=== PATIENT | male | born 1980 | race African-American/Black ===

== ENCOUNTER 2018-03-07 12:00 | Inpatient (IN) | payer OTHER ==
[2018-03-07 12:22] VITALS: BMI 23.7
--- NOTE | 2018-03-07 13:54 | HP ---
CIWA Score - CIWA Score Nausea/Vomitin-Mild Nausea/No Vomiting Muscle Tremors: 4-Moderate,w/Arms Extend Anxiety: 4-Mod. Anxious/Guarded Agitation: 4-Moderately Restless Paroxysmal Sweats: 1-Minimal Palms Moist Orientation: 0-Oriented Tacttile Disturbances: 1-Very Mild Itch/Numbness Auditory Disturbances: 0-None Visual Disturbances: 0-None Headache: 0-None Present CIWA-Ar Total Score: 15 Admission ROS BHS - HPI Chief Complaint: alcohol withdrawal sx Allergies/Adverse Reactions: Allergies Allergy/AdvReac Type Severity Reaction Status Date / Time No Known Allergies Allergy Verified 03/07/18 13:38 History of Present Illness: 38 years old male with long history of alcohol dependence denies physical issue and has depression is admitted to detox Exam Limitations: No Limitations - Ebola screening Have you traveled outside of the country in the last 21 days: No Have you had contact with anyone from an Ebola affected area: No Have you been sick,other than usual withdrawal symptoms: No Do you have a fever: No - Review of Systems Constitutional: Loss of Appetite, Changes in sleep, Unintentional Wgt. Loss, Unexplained wgt Loss EENT: reports: No Symptoms Reported Respiratory: reports: No Symptoms reported Cardiac: reports: No Symptoms Reported GI: reports: Nausea, Poor Appetite, Poor Fluid Intake, Abdominal cramping Musculoskeletal: reports: No Symptoms Reported Integumentary: reports: No Symptoms Reported Neuro: reports: Tremors Endocrine: reports: No Symptoms Reported Hematology: reports: No Symptoms Reported Psychiatric: reports: No Sypmtoms Reported, Judgement Intact, Orientated x3, Anxious, Depressed Other Systems: Reviewed and Negative Patient History - Patient Medical History Hx Anemia: Yes (history never on med) Hx Asthma: No Hx Chronic Obstructive Pulmonary Disease (COPD): No Hx Cancer: No Hx Cardiac Disorders: No Hx Congestive Heart Failure: No Hx Hypertension: No Hx Hypercholesterolemia: No Hx Pacemaker: No HX Cerebrovascular Accident: No Hx Seizures: No Hx Dementia: No Hx Diabetes: No Hx Gastrointestinal Disorders: No Hx Liver Disease: No Hx Genitourinary Disorders: No Hx Sexually Transmitted Disorders: No Hx Renal Disease (ESRD): No Hx Thyroid Disease: No Hx Human Immunodeficiency Virus (HIV): No Hx Hepatitis C: No Hx Depression: Yes Hx Suicide Attempt: No Hx Bipolar Disorder: No Hx Schizophrenia: No - Patient Surgical History Past Surgical History: Yes Hx Orthopedic Surgery: Yes (right arm 2010 right jaw 2012) Anesthesia Reaction: No - PPD History Previous Implant?: Yes Documented Results: Negative w/o proof Implanted On Prior R Admission?: No PPD to be Administered?: Yes - Smoking Cessation Smoking history: Never smoked Have you smoked in the past 12 months: No Hx Chewing Tobacco Use: No Initiated information on smoking cessation: No - Substance & Tx. History Hx Alcohol Use: Yes Hx Substance Use: No Substance Use Type: Alcohol Hx Substance Use Treatment: No (1st) - Substances Abused Alcohol-cognac/beer Route: Oral Frequency: Daily Amount used: 1 pt./1-6 pk. Age of first use: 16 Date of Last Use: 03/07/18 Family Disease History - Family Disease History Family Disease History: Other: Father (no contact) Other Family History: only child Admission Physical Exam [facility] - Vital Signs Vital Signs: Vital Signs - 24 hr 03/07/18 12:13 Temperature 97.1 F L Pulse Rate 77 Respiratory 18 Rate Blood Pressure 131/72 - Physical General Appearance: Yes: Appropriately Dressed, Mild Distress, Alcohol on Breath , Thin, Tremorous, Irritable, Sweating HEENTM: Yes: Hearing grossly Normal, Normocephalic, Normal Voice Respiratory: Yes: Chest Non-Tender, Lungs Clear, Normal Breath Sounds, No Respiratory Distress, No Accessory Muscle Use Neck: Yes: Supple, Trachea in good position Breast: Yes: Breasts Symetrical, No Discharge Cardiology: Yes: Regular Rhythm, Regular Rate, S1, S2 Abdominal: Yes: Normal Bowel Sounds, Non Tender, Flat Genitourinary: Yes: Within Normal Limits Back: Yes: Normal Inspection Musculoskeletal: Yes: full range of Motion, Gait Steady Extremities: Yes: Normal Inspection (old healed scars on right arm), Normal Range of Motion, Non-Tender, Tremors Neurological: Yes: Fully Oriented, Alert, Motor Strength 5/5, Normal Response, Depressed Affect Integumentary: Yes: Warm Lymphatic: Yes: Within Normal Limits - Diagnostic (1) Alcohol dependence with uncomplicated withdrawal Current Visit: Yes Status: Acute (2) Anxious depression Current Visit: Yes Status: Suspected Cleared for Admission [facility] - Detox or Rehab [facility] Level of Care: Medically Managed Detox Regimen/Protocol: Librium [facility] Breath Alcohol Content Breath Alcohol Content: 0.008 Urine Drug Screen - Results Drug Screen Negative: Yes
[2018-03-07] MEDS ORDERED: LOPERAMIDE HCL 2 MG CAPSULE PO PRN (13:59)
[2018-03-07] MEDS ORDERED: guaiFENesin/D-METHORPHAN HB 10 ML UNIT-DOSE CUPS PO PRN (13:59)
[2018-03-07] MEDS ORDERED: MAG HYDROX/AL HYDROX/SIMETH 30 ML UNIT-DOSE CUP PO PRN (13:59)
[2018-03-07] MEDS ORDERED: IBUPROFEN 400 MG TABLET (FP) PO PRN (13:59)
[2018-03-07] MEDS ORDERED: ACETAMINOPHEN 325 MG TABLET (FP) PO PRN (13:59)
[2018-03-07] MEDS ORDERED: MAGNESIUM CITRATE 300 ML BOTTLE PO PRN (13:59)
[2018-03-07] MEDS ORDERED: MENTHOL/PHENOL 1 EACH UD MM PRN (13:59)
[2018-03-07] MEDS ORDERED: P-EPHED 60MG/TRIPROLIDI 2.5MG TABLET PO PRN (13:59)
[2018-03-07] MEDS ORDERED: chlordiazePOXIDE HCL 25 MG CAPSULE PO PRN (13:59)
[2018-03-07] MEDS ORDERED: MAGNESIUM HYDROX 2400MG/30ML ORAL SUSPENSION 30 ML CUP PO PRN (13:59)
--- NOTE | 2018-03-07 15:41 | CONSULT ---
[facility] Psychiatric Consult - Data Date of interview: 03/07/18 Admission source: [facility] Identifying data: This is 38 years old male, single, father of one, living alone , unemployed, with long history of alcohol dependence , reports no history of psychiatric hospitalizations. Substance Abuse History: - Smoking Cessation. Smoking history: Never smoked. Have you smoked in the past 12 months: No. Hx Chewing Tobacco Use: No. Initiated information on smoking cessation: No. - Substance & Tx. History. Hx Alcohol Use: Yes. Hx Substance Use: No. Substance Use Type: Alcohol. Hx Substance Use Treatment: No (1st). - Substances Abused. Alcohol-cognac/ beer. Route: Oral. Frequency: Daily. Amount used: 1 pt./1-6 pk. Age of first use: 16. Date of Last Use: 03/07/18 Medical History: Denies any significant medical problem Psychiatric History: Denies past psychiatric history Physical/Sexual Abuse/Trauma History: Denies Additional Comment: Observation. Detox Unit Care Protocol Mental Status Exam - Mental Status Exam Alert and Oriented to: Person Cognitive Function: Fair Patient Appearance: Well Groomed Mood: Anxious Affect: Constricted Patient Behavior: Guarded Speech Pattern: Appropriate Voice Loudness: Normal Thought Process: Goal Oriented Thought Disorder: Being Controlled Hallucinations: Denies Suicidal Ideation: Denies Homicidal Ideation: Denies Insight/Judgement: Fair Sleep: Difficulty falling asleep Appetite: Fair Muscle strength/Tone: Normal Gait/Station: Normal Additional Comments: Observation. Detox Unit Care Protocol Psychiatric Findings - Problem List ([place] 1, 2,3) (1) Alcohol-induced mood disorder Current Visit: Yes Status: Suspected (2) Alcohol dependence with uncomplicated withdrawal Current Visit: Yes Status: Acute - Initial Treatment Plan Initial Treatment Plan: Observation. Detox Unit Care Protocol
[2018-03-07] MEDS ORDERED: chlordiazePOXIDE HCL 25 MG CAPSULE PO ONE (17:45)
--- NOTE | 2018-03-07 17:59 | EKG ---
Test Reason : Blood Pressure : / mmHG Vent. Rate : 073 BPM Atrial Rate : 073 BPM P-R Int : 144 ms QRS Dur : 086 ms QT Int : 376 ms P-R-T Axes : 051 072 041 degrees QTc Int : 414 ms NORMAL SINUS RHYTHM EARLY REPOLARIZATION NORMAL ECG NO PREVIOUS ECGS AVAILABLE Confirmed by ROSEY KNIGHT MD ([id number]) on 03/07/2018 5:59:24 PM Referred By: Confirmed By:ROSEY KNIGHT MD
[2018-03-07 21:06] LABS: URINE APPEARANCE TURBID; URINE BILIRUBIN NEGATIVE (<2.0 mg/dL); URINE COLOR AMBER; URINE GLUCOSE (UA) NEGATIVE (NEGATIVE); URINE KETONE NEGATIVE (NEGATIVE); URINE LEUK ESTERASE NEGATIVE (NEGATIVE); URINE NITRITE NEGATIVE (NEGATIVE); URINE PROTEIN NEGATIVE (NEGATIVE); URINE UROBILINOGEN 4.0 E.U/dl mg/dL (0.2-1.0)
[2018-03-07 21:28] LABS: URINE MUCUS RARE
[2018-03-07] MEDS: chlordiazePOXIDE HCL 25 MG CAPSULE PO SCH (22:49)
[2018-03-07] MEDS: THIAMINE HCL 100 MG TABLET (FP) PO SCH (22:49)
[2018-03-07] MEDS: MELATONIN 5 MG TABLETS PO PRN (23:39)
[2018-03-08] MEDS: chlordiazePOXIDE HCL 25 MG CAPSULE PO SCH ×4 (05:43→22:30)
[2018-03-08 10:08] LABS: HEMATOCRIT 32.5 % (35.4-49); MCHC 30.9 g/dl (32.0-35.9); MEAN CELL VOLUME 60.9 fl (80-96); MEAN PLT VOLUME 9.8 fl (7.5-11.1); PLATELET COUNT 301 K/MM3 (134-434); RBC 5.34 M/mm3 (4.00-5.60); RDW 17.8 % (11.9-15.9); WHITE BLOOD COUNT 6.4 K/mm3 (4.0-10.0)
[2018-03-08 10:16] LABS: CHLORIDE 104 mmol/L (98-107); POTASSIUM 4.1 mmol/L (3.5-5.1); SODIUM 139 mmol/L (136-145)
[2018-03-08 10:28] LABS: MCH 18.8 pg (25.7-33.7)
[2018-03-08 10:46] LABS: ALBUMIN 4.1 g/dl (3.4-5.0); ALK PHOS 57 U/L (45-117); ANION GAP 8 (8-16); BILIRUBIN,TOTAL 0.7 mg/dL (0.2-1.0); BLOOD UREA NITROGEN 11 mg/dL (7-18); CALCIUM 8.9 mg/dL (8.5-10.1); CO2 27 mmol/L (21-32); CREATININE 0.9 mg/dL (0.7-1.3); GLUCOSE,RANDOM 92 mg/dL (74-106); SGOT/AST 34 U/L (15-37); SGPT/ALT 34 U/L (12-78); TOT PROT 8.1 g/dl (6.4-8.2)
--- NOTE | 2018-03-08 11:07 | PN ---
S CIWA - CIWA Score Nausea/Vomitin Muscle Tremors: 3 Anxiety: 2 Agitation: 2 Paroxysmal Sweats: 1-Minimal Palms Moist Orientation: 0-Oriented Tacttile Disturbances: 1-Very Mild Itch/Numbness Auditory Disturbances: 1-Very Mild Visual Disturbances: 0-None Headache: 2-Mild CIWA-Ar Total Score: 15 S Progress Note (SOAP) Subjective: ALERT,IRRITABLE,ANXIOUS,INTERRUPTED SLEEP,TREMOR Objective: 03/08/18 11:02 Vital Signs Temperature 98.1 F 03/08/18 09:12 Pulse Rate 97 H 03/08/18 09:12 Respiratory Rate 18 03/08/18 09:12 Blood Pressure 113/62 03/08/18 09:12 O2 Sat by Pulse Oximetry (%) EKG NSR QT 376/414 NO CHEST PAIN,NO SOB,NO DIZZINESS Laboratory Last Values WBC 6.4 K/mm3 (4.0-10.0) 03/08/18 06:00 RBC 5.34 M/mm3 (4.00-5.60) 03/08/18 06:00 Hgb 10.0 GM/dL (11.7-16.9) L 03/08/18 06:00 Hct 32.5 % (35.4-49) L 03/08/18 06:00 MCV 60.9 fl (80-96) L 03/08/18 06:00 MCH 18.8 pg (25.7-33.7) L 03/08/18 06:00 MCHC 30.9 g/dl (32.0-35.9) L 03/08/18 06:00 RDW 17.8 % (11.9-15.9) H 03/08/18 06:00 Plt Count 301 K/MM3 (134-434) 03/08/18 06:00 MPV 9.8 fl (7.5-11.1) 03/08/18 06:00 Sodium 139 mmol/L (136-145) 03/08/18 06:00 Potassium 4.1 mmol/L (3.5-5.1) 03/08/18 06:00 Chloride 104 mmol/L (98-107) 03/08/18 06:00 Carbon Dioxide 27 mmol/L (21-32) 03/08/18 06:00 Anion Gap 8 (8-16) 03/08/18 06:00 BUN 11 mg/dL (7-18) 03/08/18 06:00 Creatinine 0.9 mg/dL (0.7-1.3) 03/08/18 06:00 Creat Clearance w eGFR > 60 (>60) 03/08/18 06:00 Random Glucose 92 mg/dL (74-106) 03/08/18 06:00 Calcium 8.9 mg/dL (8.5-10.1) 03/08/18 06:00 Total Bilirubin 0.7 mg/dL (0.2-1.0) 03/08/18 06:00 AST 34 U/L (15-37) 03/08/18 06:00 ALT 34 U/L (12-78) 03/08/18 06:00 Alkaline Phosphatase 57 U/L (45-117) 03/08/18 06:00 Total Protein 8.1 g/dl (6.4-8.2) 03/08/18 06:00 Albumin 4.1 g/dl (3.4-5.0) 03/08/18 06:00 Urine Color [place] 03/07/18 20:00 Urine Appearance Turbid 03/07/18 20:00 Urine pH 5.0 (5.0-8.0) 03/07/18 20:00 Ur Specific [place] 1.026 (1.001-1.035) 03/07/18 20:00 Urine Protein Negative (NEGATIVE) 03/07/18 20:00 Urine Glucose (UA) Negative (NEGATIVE) 03/07/18 20:00 Urine Ketones Negative (NEGATIVE) 03/07/18 20:00 Urine Blood 1+ (NEGATIVE) H 03/07/18 20:00 Urine Nitrite Negative (NEGATIVE) 03/07/18 20:00 Urine Bilirubin Negative (<2.0 mg/dL) 03/07/18 20:00 Urine Urobilinogen 4.0 e.u/dl mg/dL (0.2-1.0) 03/07/18 20:00 Ur Leukocyte Esterase Negative (NEGATIVE) 03/07/18 20:00 Urine WBC (Auto) 2 /hpf (3-5) 03/07/18 20:00 Urine RBC (Auto) 1 /hpf (0-3) 03/07/18 20:00 Urine Mucus Rare 03/07/18 20:00 03/08/18 11:05 HISTORY OF ANEMIA,NON COMPLIANCE WITH IRON PILL Assessment: 03/08/18 11:06 WITHDRAWAL SYMPTOM Plan: CONTINUE DETOX,FERROUS SULFATE 325 MGS PO BID
[2018-03-08] MEDS: PRENATAL VITAMINS W/ FOLIC ACID TABLET (FP) PO SCH (11:21)
[2018-03-08] MEDS: FERROUS SO4 325 MG TABLET (FP) PO SCH ×2 (11:23→22:30)
[2018-03-08] MEDS: THIAMINE HCL 100 MG TABLET (FP) PO SCH (22:30)
[2018-03-08] MEDS: MELATONIN 5 MG TABLETS PO PRN (23:41)
[2018-03-09] MEDS: chlordiazePOXIDE HCL 25 MG CAPSULE PO SCH ×3 (06:53→17:46)
[2018-03-09] MEDS: FERROUS SO4 325 MG TABLET (FP) PO SCH ×2 (10:26→22:18)
[2018-03-09] MEDS: PRENATAL VITAMINS W/ FOLIC ACID TABLET (FP) PO SCH (10:26)
--- NOTE | 2018-03-09 11:05 | PN ---
S CIWA - CIWA Score Nausea/Vomitin Muscle Tremors: 3 Anxiety: 2 Agitation: 2 Paroxysmal Sweats: 1-Minimal Palms Moist Orientation: 0-Oriented Tacttile Disturbances: 1-Very Mild Itch/Numbness Auditory Disturbances: 1-Very Mild Visual Disturbances: 0-None Headache: 2-Mild CIWA-Ar Total Score: 15 BHS Progress Note (SOAP) Subjective: ALERT,IRRITABLE,ANXIOUS,INTERRUPTED SLEEP,TREMOR Objective: 03/09/18 11:04 Vital Signs Temperature 97.3 F L 03/09/18 09:11 Pulse Rate 96 H 03/09/18 09:11 Respiratory Rate 16 03/09/18 09:11 Blood Pressure 111/83 03/09/18 09:11 O2 Sat by Pulse Oximetry (%) Laboratory Last Values WBC 6.4 K/mm3 (4.0-10.0) 03/08/18 06:00 RBC 5.34 M/mm3 (4.00-5.60) 03/08/18 06:00 Hgb 10.0 GM/dL (11.7-16.9) L 03/08/18 06:00 Hct 32.5 % (35.4-49) L 03/08/18 06:00 MCV 60.9 fl (80-96) L 03/08/18 06:00 MCH 18.8 pg (25.7-33.7) L 03/08/18 06:00 MCHC 30.9 g/dl (32.0-35.9) L 03/08/18 06:00 RDW 17.8 % (11.9-15.9) H 03/08/18 06:00 Plt Count 301 K/MM3 (134-434) 03/08/18 06:00 MPV 9.8 fl (7.5-11.1) 03/08/18 06:00 Sodium 139 mmol/L (136-145) 03/08/18 06:00 Potassium 4.1 mmol/L (3.5-5.1) 03/08/18 06:00 Chloride 104 mmol/L (98-107) 03/08/18 06:00 Carbon Dioxide 27 mmol/L (21-32) 03/08/18 06:00 Anion Gap 8 (8-16) 03/08/18 06:00 BUN 11 mg/dL (7-18) 03/08/18 06:00 Creatinine 0.9 mg/dL (0.7-1.3) 03/08/18 06:00 Creat Clearance w eGFR > 60 (>60) 03/08/18 06:00 Random Glucose 92 mg/dL (74-106) 03/08/18 06:00 Calcium 8.9 mg/dL (8.5-10.1) 03/08/18 06:00 Total Bilirubin 0.7 mg/dL (0.2-1.0) 03/08/18 06:00 AST 34 U/L (15-37) 03/08/18 06:00 ALT 34 U/L (12-78) 03/08/18 06:00 Alkaline Phosphatase 57 U/L (45-117) 03/08/18 06:00 Total Protein 8.1 g/dl (6.4-8.2) 03/08/18 06:00 Albumin 4.1 g/dl (3.4-5.0) 03/08/18 06:00 Urine Color Cora 03/07/18 20:00 Urine Appearance Turbid 03/07/18 20:00 Urine pH 5.0 (5.0-8.0) 03/07/18 20:00 Ur Specific [place] 1.026 (1.001-1.035) 03/07/18 20:00 Urine Protein Negative (NEGATIVE) 03/07/18 20:00 Urine Glucose (UA) Negative (NEGATIVE) 03/07/18 20:00 Urine Ketones Negative (NEGATIVE) 03/07/18 20:00 Urine Blood 1+ (NEGATIVE) H 03/07/18 20:00 Urine Nitrite Negative (NEGATIVE) 03/07/18 20:00 Urine Bilirubin Negative (<2.0 mg/dL) 03/07/18 20:00 Urine Urobilinogen 4.0 e.u/dl mg/dL (0.2-1.0) 03/07/18 20:00 Ur Leukocyte Esterase Negative (NEGATIVE) 03/07/18 20:00 Urine WBC (Auto) 2 /hpf (3-5) 03/07/18 20:00 Urine RBC (Auto) 1 /hpf (0-3) 03/07/18 20:00 Urine Mucus Rare 03/07/18 20:00 RPR Titer Nonreactive (NONREACTIVE) 03/08/18 06:00 Assessment: 03/09/18 11:04 WITHDRAWAL SYMPTOM Plan: CONTINUE DETOX
[2018-03-09] MEDS: chlordiazePOXIDE 5 MG CAPSULE PO SCH (22:19)
[2018-03-09] MEDS: THIAMINE HCL 100 MG TABLET (FP) PO SCH (22:19)
[2018-03-09] MEDS: MELATONIN 5 MG TABLETS PO PRN (22:21)
[2018-03-10] MEDS ORDERED: hydrOXYzine PAMOATE 50 MG CAPSULE (FP) PO PRN (03:52)
[2018-03-10] MEDS: chlordiazePOXIDE 5 MG CAPSULE PO SCH ×3 (05:20→17:56)
[2018-03-10] MEDS: PRENATAL VITAMINS W/ FOLIC ACID TABLET (FP) PO SCH (11:01)
[2018-03-10] MEDS: FERROUS SO4 325 MG TABLET (FP) PO SCH ×2 (11:01→22:37)
--- NOTE | 2018-03-10 11:26 | PN ---
BHS Progress Note (SOAP) Subjective: ALERT,IRRITABLE,ANXIOUS,INTERRUPTED SLEEP Objective: 03/10/18 11:25 Vital Signs Temperature 98.1 F 03/10/18 09:17 Pulse Rate 92 H 03/10/18 09:17 Respiratory Rate 16 03/10/18 09:17 Blood Pressure 119/76 03/10/18 09:17 O2 Sat by Pulse Oximetry (%) Assessment: 03/10/18 11:25 WITHDRAWAL SYMPTOM Plan: CONTINUE DETOX
[2018-03-10] MEDS: chlordiazePOXIDE HCL 10 MG CAPSULE PO SCH (22:37)
[2018-03-10] MEDS: THIAMINE HCL 100 MG TABLET (FP) PO SCH (22:37)
[2018-03-10] MEDS: MELATONIN 5 MG TABLETS PO PRN (22:37)
[2018-03-11] MEDS: chlordiazePOXIDE HCL 10 MG CAPSULE PO SCH (05:53)
--- NOTE | 2018-03-11 09:08 | DS ---
[facility] Detox Discharge Summary Admission Date: 03/07/18 Discharge Date: 03/11/18 - History Present History: Alcohol Dependence Additional Comments: 38 years old male admitted 03/07/18 for alcohol withdrawal sx completed alcohol detox regimen tolerated well denies alcohol withdrawal sx alert oriented x 3 no acute distress brief motivational intervention promotes sobriety throughout recovering process encourage community self help self management groups and meetings for recovery - Physical Exam Results Vital Signs: Vital Signs Temperature 96.8 F L 03/11/18 06:00 Pulse Rate 81 03/11/18 06:00 Respiratory Rate 18 03/11/18 06:00 Blood Pressure 106/72 03/11/18 06:00 O2 Sat by Pulse Oximetry (%) Pertinent Admission Physical Exam Findings: withdrawal sx Vital Signs Temperature 96.8 F L 03/11/18 06:00 Pulse Rate 81 03/11/18 06:00 Respiratory Rate 18 03/11/18 06:00 Blood Pressure 106/72 03/11/18 06:00 O2 Sat by Pulse Oximetry (%) Laboratory Last Values WBC 6.4 K/mm3 (4.0-10.0) 03/08/18 06:00 RBC 5.34 M/mm3 (4.00-5.60) 03/08/18 06:00 Hgb 10.0 GM/dL (11.7-16.9) L 03/08/18 06:00 Hct 32.5 % (35.4-49) L 03/08/18 06:00 MCV 60.9 fl (80-96) L 03/08/18 06:00 MCH 18.8 pg (25.7-33.7) L 03/08/18 06:00 MCHC 30.9 g/dl (32.0-35.9) L 03/08/18 06:00 RDW 17.8 % (11.9-15.9) H 03/08/18 06:00 Plt Count 301 K/MM3 (134-434) 03/08/18 06:00 MPV 9.8 fl (7.5-11.1) 03/08/18 06:00 Sodium 139 mmol/L (136-145) 03/08/18 06:00 Potassium 4.1 mmol/L (3.5-5.1) 03/08/18 06:00 Chloride 104 mmol/L (98-107) 03/08/18 06:00 Carbon Dioxide 27 mmol/L (21-32) 03/08/18 06:00 Anion Gap 8 (8-16) 03/08/18 06:00 BUN 11 mg/dL (7-18) 03/08/18 06:00 Creatinine 0.9 mg/dL (0.7-1.3) 03/08/18 06:00 Creat Clearance w eGFR > 60 (>60) 03/08/18 06:00 Random Glucose 92 mg/dL (74-106) 03/08/18 06:00 Calcium 8.9 mg/dL (8.5-10.1) 03/08/18 06:00 Total Bilirubin 0.7 mg/dL (0.2-1.0) 03/08/18 06:00 AST 34 U/L (15-37) 03/08/18 06:00 ALT 34 U/L (12-78) 03/08/18 06:00 Alkaline Phosphatase 57 U/L (45-117) 03/08/18 06:00 Total Protein 8.1 g/dl (6.4-8.2) 03/08/18 06:00 Albumin 4.1 g/dl (3.4-5.0) 03/08/18 06:00 Urine Color Cora 03/07/18 20:00 Urine Appearance Turbid 03/07/18 20:00 Urine pH 5.0 (5.0-8.0) 03/07/18 20:00 Ur Specific [place] 1.026 (1.001-1.035) 03/07/18 20:00 Urine Protein Negative (NEGATIVE) 03/07/18 20:00 Urine Glucose (UA) Negative (NEGATIVE) 03/07/18 20:00 Urine Ketones Negative (NEGATIVE) 03/07/18 20:00 Urine Blood 1+ (NEGATIVE) H 03/07/18 20:00 Urine Nitrite Negative (NEGATIVE) 03/07/18 20:00 Urine Bilirubin Negative (<2.0 mg/dL) 03/07/18 20:00 Urine Urobilinogen 4.0 e.u/dl mg/dL (0.2-1.0) 03/07/18 20:00 Ur Leukocyte Esterase Negative (NEGATIVE) 03/07/18 20:00 Urine WBC (Auto) 2 /hpf (3-5) 03/07/18 20:00 Urine RBC (Auto) 1 /hpf (0-3) 03/07/18 20:00 Urine Mucus Rare 03/07/18 20:00 RPR Titer Nonreactive (NONREACTIVE) 03/08/18 06:00 lab noted - Treatment Hospital Course: Detox Protocol Followed, Detoxed Safely, Responded well, Discharged Condition Good, Rehab Referral Accepted Patient has Accepted a Rehab Referral to: encourage community self-management meetings and groups - Medication Discharge Medications: Ambulatory Orders Ferrous Sulfate [Feosol] 325 mg PO BID 30 Days #60 ud 03/10/18 - Diagnosis (1) Alcohol dependence with uncomplicated withdrawal Current Visit: Yes Status: Acute (2) Anxious depression Current Visit: Yes Status: Suspected - AMA Did Patient Leave Against Medical Advice: No
[2018-03-11 09:41] VITALS: BP 114/72; PULSE 107; TEMP 97.5
== END 2018-03-11 09:12 | disposition home or self-care (01) | DRG 775 ==
LOC: YASAS 12:00 → Y6N 14:37
PROVIDERS: ADMIT Surgery; ATTEND Surgery
PROC: HZ2ZZZZ Detoxification Services for Substance Abuse Treatment (ICD-10-PCS; principal; 2018-03-07)
DX: F10.230 Alcohol dependence with withdrawal, uncomplicated (principal); F10.24 Alcohol dependence with alcohol-induced mood disorder; F41.8 Other specified anxiety disorders; G47.00 Insomnia, unspecified; Z86.2 Personal history of diseases of the blood and blood-forming organs and certain disorders involving the immune mechanism
CPT/HCPCS: 36415; 80053; 81003; 81015; 85027; 86593; 93005; 93010